=== PATIENT | male | born 1965 | race Caucasian/White ===

== ENCOUNTER → 2017-12-20 | Outpatient (CLI) | payer OTHER ==
[~2017-12-20] MED LIST: AUG875 PO; CEP250 PO; DES5 PO; FEXO180T74 PO; FISHOIL PO; HYDR-385 PO; INDO25 PO; KET10 PO; NIAC100040 PO; OLM20 PO; OLME1TAB51 PO; [UNRECOGNIZED DRUG - CODE] PO
--- NOTE | 2017-12-20 14:37 | RADIOLOGY IMAGING REPORT ---
[place]AC[place] [facility] [place]IENT NAME: Dominic Rivera : 1965 MR: [id number] V: [id number] EXAM DATE: ORDERING PHYSICIAN: COOKIE LAURA TECHNOLOGIST: Location: [facility] - [place] Patient: Dominic Rivera : 1965 Visit/Account:[id number] Date of Sevice: 12/20/2017 THYROID HISTORY: Thyroid nodule, increased pressure on one type COMPARISON: September 14, 2014 FINDINGS: SIZE: Enlarged Right lobe: Approximately 9.7 x 2.4 x 2 cm Left lobe: Approximately 9.4 x 3.8 x 3.6 cm Isthmus: 6 mm PARENCHYMA: Homogeneous. NODULES: Right lobe: * There is a mildly complex cystic and solid nodule in the superior pole the right lobe measuring 1. 3 x 0.9 x 1.3 cm.. This was not identified on the previous scan In the mid right lobe there is a 7 mm well-circumscribed nodule of mixed echogenicity. Left lobe: * Replacing most of the left lobe is a heterogeneous polylobular complex nodule measuring 5.8 x 3.1 x 3.4 cm.. This mass has increased in size when compared to the previous scan In the superior pole of the left lobe is a well-circumscribed isoechoic nodule measuring 2.2 x 1.6 x 2 cm. Isthmus: * None discrete. VASCULARITY: Within normal limits. ADDITIONAL FINDINGS: None. IMPRESSION: There is a mildly complex cystic and solid nodule superior pole of the right lobe measuring 1.3 cm in diameter which was not identified on the prior study The large polylobular mass encompassing most of the left lobe has increased in size and now measures 5.8 x 3.1 x 3.4 cm as opposed to 3.8 cm in maximum dimension on the prior study. REFERENCE: 2015 [place] [employer] Management Guidelines for Adult Patients with Thyroid Nodules and D ifferentiated Thyroid Cancer: The [place] [employer] Guidelines Task Force on Thyroid Nodul es and Differentiated Thyroid Cancer. SONOGRAPHIC PATTERNS: * Benign: Purely cystic nodules (no solid component); estimated risk of malignancy <1 percent; no bi opsy recommended. * Very Low Suspicion: Spongiform or partially cystic nodules without any of the sonographic features described in low, intermediate, or high suspicion patterns; estimated risk of malignancy <3 percent; consider FNA at > 2 cm (Observation without FNA is also a reasonable option). * Low Suspicion: Isoechoic or hyperechoic solid nodule, or partially cystic nodule with eccentric so lid areas, without microcalcification, irregular margin or ETE (extra-thyroidal extension), or taller than wide shape; estimated risk of malignancy 5-10 percent; recommend FNA at >1.5 cm. * Intermediate Suspicion: Hypoechoic solid nodule with smooth margins without microcalcifications, E TE (extra-thyroidal extension), or taller than wide shape; estimated risk of malignancy 10-20 percent ; recommend FNA at > 1 cm. * High Suspicion: Solid hypoechoic nodule or solid hypoechoic component of a partially cystic nodule with one or more of the following features: irregular margins (infiltrative, microlobulated), microc alcifications, taller than wide shape, rim calcifications with small extrusive soft tissue component, evidence of ETE (extra-thyroidal extension); estimated risk of malignancy >70-90 percent; recommend FNA at > 1 cm. NOTES: * Although a sonographically suspicious subcentimeter thyroid nodule without evidence of extrathyroi titus extension or sonographically suspicious lymph nodes may be observed with close sonographic follow -up rather than pursuing immediate FNA, patient age and preference may modify decision-making. A > 50% interval increase in nodule volume and/or development of new suspicious sonographic features are felt to be a valid reasons for potential re-aspiration of a nodule previously shown to have benig n FNA cytology. Report Dictated By: Lydia Maradiaga MD at 12/20/2017 2:15 PM Report E-Signed By: Lydia Maradiaga MD at 12/20/2017 2:32 PM WSN:[email or web address]
== END ==
LOC: US 03:46
PROVIDERS: ATTEND Family Medicine
DX: E04.2 Nontoxic multinodular goiter (principal)
CPT/HCPCS: 76536

== ENCOUNTER 2018-02-03 01:01 | Observation (INO) | payer OTHER ==
[2018-02-03] VITALS (15 sets, daily range): BP systolic 108–137; BP diastolic 76–92
[~2018-02-03] VITALS: Ht 180.3 cm; Wt 102.1 kg
[~2018-02-03 01:01] MED LIST changes: +CHOL10005 PO; +IBUP200C74 PO; +OMEG-11 PO
[2018-02-03] MEDS ORDERED: PROPOFOL EMUL(*) 10MG/ML 20 ML 20 ML ONE (09:37)
[2018-02-03] MEDS ORDERED: SUGAMMADEX SOD 200 MG/2 ML SDV ONE (09:37)
[2018-02-03] MEDS ORDERED: ROCURONIUM BROM 10 MG/ML 10 ML ONE (09:37)
[2018-02-03] MEDS ORDERED: LIDOCAINE MPF 1% 5 ML VIAL ONE (09:37)
[2018-02-03] MEDS ORDERED: ONDANSETRON 4 MG/2 ML VIAL ONE (09:37)
[2018-02-03] MEDS ORDERED: fentaNYL CITR 250 MCG/5 ML AMP ONE (09:37)
[2018-02-03] MEDS ORDERED: DEXAMETHASONE SOD 4 MG/ML VIAL ONE (09:37)
[2018-02-03] MEDS ORDERED: KETAMINE HCL 200 MG/20 ML MDV ONE (09:49)
[2018-02-03] MEDS ORDERED: ROPIVACAINE 0.5% 20 ML VIAL ONE (10:16)
[2018-02-03] MEDS ORDERED: MIDAZOLAM 2 MG/2 ML VIAL IVP PRN (10:30)
[2018-02-03] MEDS ORDERED: ceFAZolin(*) 2GM/D5W 50ML 50 ML IVPB ONE (10:30)
[2018-02-03] MEDS ORDERED: LIDOCAINE/SOD BICARB 8.4% SYR ID ONE (10:30)
[2018-02-03] MEDS ORDERED: FAMOTIDINE 20 MG TAB PO ONE (10:30)
[2018-02-03] MEDS ORDERED: NORMOSOL R SOLN(*) 1000 ML BAG 1,000 ML IV PRN (10:30)
[2018-02-03] MEDS ORDERED: ceFAZolin(*) 1 GM VIAL 3 GM in NS(*) 0.9% 100 ML BAG 100 ML IVPB ONE (10:30)
[2018-02-03] MEDS ORDERED: fentaNYL CITR 100 MCG/2 ML AMP ONE ×2 (12:00→16:18)
[2018-02-03] MEDS ORDERED: DESFLURANE 240 ML BTL INH ONE (12:59)
[2018-02-03] MEDS ORDERED: GELATIN SPONGE 12-7MM ONE ×2 (13:02→13:03)
[2018-02-03] MEDS ORDERED: NS(*) 0.9% 1000 ML BAG 1,000 ML IV PRN (16:02)
[2018-02-03] MEDS ORDERED: FLUSH 10 ML SYR IVP PRN (16:05)
[2018-02-03] MEDS ORDERED: PROMETHAZINE 25 MG/ML 1 ML AMP IVP PRN (16:05)
[2018-02-03] MEDS ORDERED: ONDANSETRON 4 MG/2 ML VIAL IVP PRN (16:05)
[2018-02-03] MEDS ORDERED: MORPHINE 2 MG/ML SYR IVP PRN (16:05)
--- NOTE | 2018-02-03 16:19 | Post Operative Progress Note ---
Post Operative Progress Note Date: Feb 03, 2018 Time: 16:08 Surgeon: Jani Dictation number: [id number] Anesthesia: GETA by Dr. Hill Pre-Op Diagnosis: Multinodular goiter with growing nodules Post-Op Diagnosis: PIERRE Findings: C/W dx Procedure(s): Total thyroidectomy Specimen Removed:(May be N/A): Thyroid Complications: None Fluids: See anesthesia record Estimated Blood Loss: 100mL Date OP Note Dictated: Feb 03, 2018 Time OP Note Dictated: 16:09 ANUSHKA CULP MD Feb 03, 2018 16:19
[2018-02-03] MEDS: CALCIUM CARBONATE 600 MG TAB PO SCH (17:10)
--- NOTE | 2018-02-03 19:38 | OPERATIVE REPORT 1 ---
EVENT DATE: February 03, 2018 SURGEON: Marcos Gunter MD ANESTHESIOLOGIST: Antony Martinez MD ANESTHESIA: General endotracheal anesthesia. PREOPERATIVE DIAGNOSIS Multinodular goiter with growing nodules. POSTOPERATIVE DIAGNOSIS Multinodular goiter with growing nodules. PROCEDURE PERFORMED Total thyroidectomy. COMPLICATIONS None. CONDITION Stable. BLOOD LOSS 100 mL SPECIMENS Thyroid. FINDINGS The patient had a very large left thyroid gland. The right thyroid was almost normal, but there was a just under 2 cm nodule in the superior pole that was very hard. INDICATIONS This is a 53-year-old gentleman who was referred to my office with multiple thyroid nodules. He has had a right thyroid nodule which was not evident on a recent ultrasound, but he had a new very suspicious thyroid nodule in the superior pole of his right thyroid lobe. He also had a 5.8 cm growing polylobular complex nodule encompassing most of his left thyroid lobe. We discussed options, and we discussed sending him for FNA versus proceeding with total thyroidectomy. He elected to proceed with total thyroidectomy given the ultrasound results. DESCRIPTION OF PROCEDURE The patient was brought to the operating room and placed supine on the operating table. General endotracheal anesthesia was administered, and I observed the patient being intubated using the GlideScope, and his vocal cords seemed to be symmetric. We then placed him in a reclining beach chair position with his neck extended and then put in the leads for the nerve monitor in the skin in his chest. We then prepped and draped his neck in a sterile fashion. Timeout was completed. I marked the skin at a skin crease just above his suprasternal notch, then anesthetized the skin, and made a 6 cm Ashley-type incision just in the skin crease centered on the midline. I dissected through the dermis and the subcutaneous fat and then through the platysma muscle. I then grasped the platysma muscle with Allis clamps and created subplatysmal flaps up to the laryngeal cartilage and down to the suprasternal notch and the clavicular heads. I then divided the median raphe between the vertical strap muscles, cut under these, and started with the right thyroid lobe. I raised the muscles off the thyroid lobe and dissected around the lateral aspect of the thyroid. I identified the inferior pole vessels which were isolated and divided with the Harmonic scalpel, and then the middle thyroidal vein was identified and divided with the Harmonic scalpel. The superior pole was very long and went very far up into the neck, and I could palpate a nodule at the very tip of this. I used a combination of blunt and sharp dissection to get around the superior pole and identified the superior vascular pedicle which was isolated and divided with the Harmonic scalpel. I did identify a right inferior parathyroid gland which was clearly identified, and this was preserved along with its blood supply and left in situ. I did not identify the right superior parathyroid gland. I continued to medialize the thyroid and use the nerve identifier to continue to identify the recurrent laryngeal nerve as I continued to dissect. I dissected through the ligament of Neal and then completed the mobilization of the right thyroid lobe through the isthmus. I then moved to the other side of the table and began the dissection of the left thyroid lobe by dissecting under the strap muscles mostly with blunt dissection all the way until I got lateral The left thyroid lobe was much larger than the right thyroid lobe. I continued the dissection in much the same manner as I did on the right side, although it was a little more challenging due to the size of the lobe and the amount of retraction required to get safely around this. I again used the nerve monitor to identify the recurrent laryngeal nerve as I continued the dissection, and I identified the superior and inferior parathyroid glands on the patient's left. These were left in situ. I also observed the branch of the inferior thyroidal artery going into each of these, indicating a good blood supply. The thyroid was then passed off the field, and the patient's neck was irrigated and dried. I looked for bleeding, and it was dry. I did pack Surgicel strips on both sides of the trachea just to hopefully minimize postoperative bleeding and then placed a 10-Macedonian round drain into the patient's neck, coming out through the midline below the sternal notch. I sewed this into place with a single 2-0 silk suture. I then closed the median raphe with interrupted 3-0 Vicryl sutures without sewing the drain in place internally. I then closed the platysma muscle with interrupted 3-0 Vicryl sutures, and the skin was closed with a running 4-0 Monocryl subcuticular suture. The skin was cleaned and dried, and Steri-Strips were applied over the incision, followed by drain dressings. The patient was then awakened and extubated, and I had Dr. Martinez put the GlideScope in so that I could look at the vocal cords, but we were not able to get a good view of them as the patient was squirming. He was then transported to the recovery room in stable condition having tolerated this procedure without any apparent problems. MARSHA
[2018-02-03] MEDS: DOCUSATE SODIUM 100 MG CAP PO SCH (20:18)
[2018-02-03] MEDS: FAMOTIDINE 20 MG TAB PO SCH (20:18)
[2018-02-04 03:31] VITALS: BP 121/82
[2018-02-04 06:20] LABS: PLATELET COUNT, AUTOMATED 204 K/uL (150-450)
[2018-02-04 07:32] VITALS: BP 107/82
[2018-02-04] MEDS: FAMOTIDINE 20 MG TAB PO SCH (08:38)
[2018-02-04] MEDS: DOCUSATE SODIUM 100 MG CAP PO SCH (08:39)
[2018-02-04] MEDS: CALCIUM CARBONATE 600 MG TAB PO SCH (08:39)
[2018-02-04] MEDS ORDERED: OLMESARTAN 20 MG TAB PO SCH (09:00)
[2018-02-04] MEDS ORDERED: OMEGA-3 500 MG CAP PO SCH (09:00)
[2018-02-04] MEDS ORDERED: CHOLECALCIFEROL 1000 UNIT TAB PO SCH (09:00)
[2018-02-04] MEDS ORDERED: PER PO (09:06)
[2018-02-04] MEDS ORDERED: DOCU-202 PO (09:06)
[2018-02-04] MEDS ORDERED: CAL600 PO (09:06)
--- NOTE | 2018-02-04 09:10 | Short(Outpt) Discharge Summary ---
Discharge Summary Reason for Hosp/Final Diag: (1) Multinodular goiter (nontoxic) Status: Chronic Hospital Course & Plan: Total thyroidectomy completed without problems. Pt recovered without problems overnight, drain removed this morning. Will d/c to home. Departure Discharge to: Home, Self Care Discharge Instructions Home Meds Active Scripts Oxycodone/Acetaminophen (OXYCODONE/ACETAMINOPHEN 5MG/325 MG) 5 Mg/325 Mg Tab, 1- 2 TAB PO Q4H Y for MODERATE PAIN, #30 TAB 0 Refills Prov:ANUSHKA CULP MD 02/04/18 Docusate Sodium (DOCUSATE SODIUM) 100 Mg Capsule, 1 CAP PO BID, #30 CAPSULE 0 Refills Prov:ANUSHKA CULP MD 02/04/18 Calcium Carbonate (ELEMENTAL CALCIUM) 600 Mg Tab, 1 TAB PO BIDBS, #60 TAB 0 Refills Prov:ANUSHKA CULP MD 02/04/18 Reported Medications Ibuprofen (ADVIL) 200 Mg Capsule, 1-2 CAP PO Q6-8H Y for PAIN, CAPSULE 01/25/18 Cholecalciferol (Vitamin D3) (VITAMIN D3) 1,000 Unit Tablet, 1000 UNIT PO QDAY, TAB 01/25/18 [place]-3 Fatty Acids/Fish Oil (FISH OIL 1,000 MG CAPSULE) 1 Each Capsule, 1 EACH PO QDAY, CAPSULE 01/25/18 Olmesartan (Benicar) 20 Mg Tab, 40 MG PO QDAY, 0 Refills 01/14/10 Follow up Referrals: General Surgery - 02/21/18 @ Surgery, General with Anushka Culp Md You have a follow up appointment scheduled with Dr. Culp on 02/21/18, at 11:45am. Diet: Regular Activity: No Heavy Lifting, No Exertion Special Instructions: You may remove the dressing on 02/05/18, then you can shower. After showering, leave the incision and drain site open to air but leave the steristrips in place until they fall off on their own. Do not immerse the incisions for 2 weeks. Avoid any activities that involve straining or lifting more than 10 pounds for 1 week after surgery. ANUSHKA CULP MD Feb 04, 2018 09:10
[2018-02-04 10:27] VITALS: Ht 180.3 cm; Wt 102.1 kg
[2018-02-08] MEDS ORDERED: LEVO175T42 PO (16:27)
== END 2018-02-04 09:05 | disposition home or self-care (01) ==
LOC: OR 01:01 → MED 16:55
PROVIDERS: ADMIT Surgery; ATTEND Surgery
DX: E04.2 Nontoxic multinodular goiter (principal); I10 Essential (primary) hypertension; G47.33 Obstructive sleep apnea (adult) (pediatric); Z99.81 Dependence on supplemental oxygen; K21.9 Gastro-esophageal reflux disease without esophagitis; E78.5 Hyperlipidemia, unspecified
CPT/HCPCS: 36415; 60240; 84443; 85025; 88307; G0378; J1100; J2001; J2250; J2405; J2704; J2795; J3010; J3490; J7030; 82310; 82374; 82435; 82565; 82947; 84132; 84295; 84520

== ENCOUNTER → 2018-10-28 | Outpatient (CLI) | payer OTHER ==
[2018-02-04 10:27] VITALS: BMI 31.4
[~2018-10-28] MED LIST changes: +BARIUM SULFATE 148 GM POWDER ONE; +CAL600 PO; +DOCU-202 PO; +LEV125 PO; +LEVO-3 PO; +LEVO175T42 PO; +PER PO
--- NOTE | 2018-10-28 10:41 | SLP MODIFIED BARIUM SWALLOW ---
Speech Language Pathology Modified Barium Swallow Evaluation Report Date of Evaluation:10-28-18 Patient Name: Dominic Rivera Patient : 1965, 53yr Physician: Dr. Marcos Gunter Clinician: Peggy Hicks M.S., CCC-[employer] SYSTEMS ENGINEER BACKGROUND The patient is a 53yr old male referred for an MBS to assess swallow structure and function as indicated by s/s of pharyngeal dysphagia including globus sensation. Pt reported no difficulty swallowing any texture of food or liquid. No coughing during or after swallowing. Oxygen Supplementation: No Level of Consciousness: Non altered Cognitive/Linguistic: intact Orientation: x4 Language: -expressive: nonaphasic -receptive: nonaphasic Speech: -non-apraxic -non-dysarthric Voice -Dysphonia: none -Nasal emission: No -Hypernasality: No -Wet Vocal Quality: No Non-verbal Oral Structure and Function: within functional limits for speech and swallow Pain with Swallow: Denies MODIFIED BARIUM SWALLOW In conjunction with radiology, lateral view with trials of the following consistencies: thin barium liquid (noncarbonated), barium marked pureed, mechanical soft, and regular food consistencies, and a 1cm barium pill. ORAL STAGE Thin Liquids: no evidence of dysphagia; WNL Pureed Foods: no evidence of dysphagia; WNL Mechanical Soft Foods: no evidence of dysphagia; WNL Regular Foods: no evidence of dysphagia; WNL PHARYNGEAL STAGE Thin Liquid: no evidence of dysphagia; WNL Pureed Food: no evidence of dysphagia; WNL Mechanical Soft Foods: no evidence of dysphagia; WNL Regular Food Consistency: no evidence of dysphagia; WNL Penetration/Aspiration Scale*: Thin liquid: Score of 1= Contrast does not enter airway Puree, soft, and regular solids: Score of 1= Contrast does not enter airway *(Rosenbek et al. 1996) ESOPHAGEAL STAGE Peristaltic movement appears to be WNL Cervical Esophagus: Materials witnessed clearing from cervical esophagus WNL. Thoracic Esophagus: Materials witnessed clearing from upper/mid/lower thoracic esophagus WNL. SHAMA: Non witnessed. * Laryngopharyngeal Reflux (LPR) None witnessed. BARIUM PILL: 1cm barium pill taken with thin liquids. No oral, pharyngeal, or esophageal dysphagia witnessed. SUMMARY Aspiration Risk: Low. No oral or pharyngeal stage dysphagia witnessed. No laryngeal penetration or aspiration witnessed. Pt. reported experiencing no symptoms of dysphagia during evaluation. 1.Dysphagia Severity Rating Scale (Gramigna, 2006; Chelle et. al., 1990): 0 Normal swallow mechanism 2.No modification in consistency of diet is indicated. RECOMMENDATIONS 1. Further evaluation of s/s as directed by physician 2. Speech Therapy: Not recommended at this time. Thank you for this referral. Please call [phone] to contact the POWER[employer] SYSTEMS ENGINEER. Peggy Hicks M.S., [facility]-[employer] ENGINEER Physician Signature Date MTDD
--- NOTE | 2018-10-28 10:46 | RADIOLOGY IMAGING REPORT ---
FACILITY: [facility] - [place] PATIENT NAME: Dominic Rivera : 1965 MR: [id number] V: [id number] EXAM DATE: [id number] ORDERING PHYSICIAN: ANUSHKA CULP TECHNOLOGIST: [place] [facility] [place]: Dominic Rivera : 1965 Visit/Account:[id number] Date of Sevice: 10/28/2018 Exam type: ESOPH VIDEO SWALLOWING History: odynophagia s/p total thyroidectomy, dysphagia Comparison: None. Findings: Modified barium swallow was performed by speech pathologist. Fluoroscopic assistance was provided Th e patient received various food substances and barium tablet and thin barium. There is no evidence o f dysphasia during the study. Please see the speech pathologist report for complete details. The do se area product was 516.08 micro-Capellan per meter squared IMPRESSION: 1. As above Report Dictated By: Lydia Maradiaga MD at 10/28/2018 10:40 AM Report E-Signed By: Lydia Maradiaga MD at 10/28/2018 10:42 AM WSN:[email or web address]
== END ==
LOC: CT 02:13
PROVIDERS: ATTEND Surgery
DX: R13.10 Dysphagia, unspecified (principal); Z78.9 Other specified health status
CPT/HCPCS: 74230

== ENCOUNTER → 2018-11-10 | Outpatient (CLI) | payer OTHER ==
[2018-02-04 10:27] VITALS: BMI 31.4
[~2018-11-10] MED LIST changes: -BARIUM SULFATE 148 GM POWDER ONE
== END ==
LOC: LAB 08:21
PROVIDERS: ATTEND Surgery
DX: I10 Essential (primary) hypertension (principal)
CPT/HCPCS: 36415; 82565

== ENCOUNTER → 2018-11-11 | Outpatient (CLI) | payer OTHER ==
[2018-02-04 10:27] VITALS: BMI 31.4
[~2018-11-11] MED LIST changes: +IOPAMIDOL 76% 150 ML INFUS BTL 150 ML ONE
--- NOTE | 2018-11-11 12:08 | RADIOLOGY IMAGING REPORT ---
FACILITY: [facility] PATIENT NAME: Dominic Rivera : 1965 MR: [id number] V: [id number] EXAM DATE: [id number] ORDERING PHYSICIAN: ANUSHKA CULP TECHNOLOGIST: Location: [facility] Patient: Dominic Rivera : 1965 Visit/Account:[id number] Date of Sevice: 11/11/2018 EXAMINATION: CT neck with IV contrast HISTORY: Odynophagia. Previous thyroidectomy. COMPARISON: Thyroid ultrasound from 09/14/2014 and I-123 scan from 10/08/2015. TECHNIQUE: Spiral scan was obtained from the hard palate through the upper chest during injection o f nonionic iodinated intravenous contrast. Sagittal and coronal reformatted images are also submitte d. CONTRAST: 75 mL of IV Isovue-370. One of the following dose optimization techniques was utilized in the performance of this exam: Autom ated exposure control; adjustment of the mA and/or kV according to the patient's size; or use of an i terative reconstruction technique. Specific details can be referenced in the facility's radiology C T exam operational policy. FINDINGS: Masses/lesions: Previous thyroidectomy. 1.4 x 1.1 cm soft tissue nodule at the inferior aspect of th e left thyroid bed (image 61 series 2), with probable fatty hilum. Airway: Normal. Vessels: Negative. Musculoskeletal/body wall: Mild degenerative changes of the cervical spine. No focal lytic or sclerot ic bony lesions. Lymph nodes: There are a few scattered shotty lymph nodes in the neck, without enlarged or abnormal m orphology lymph nodes. Visualized orbits/brain/paranasal sinuses: Negative. Upper chest: Negative. IMPRESSION: 1. No explanation for the patient's symptoms. 2. Previous thyroidectomy. 1.4 x 1.1 cm soft tissue nodule in the left thyroid bed is likely a shotty lymph node. Report Dictated By: Daksha Jackson MD at 11/11/2018 12:00 PM Report E-Signed By: Daksha Jackson MD at 11/11/2018 12:05 PM WSN:[email or web address]
== END ==
LOC: CT 02:04
PROVIDERS: ATTEND Surgery
DX: R13.10 Dysphagia, unspecified (principal); Z90.89 Acquired absence of other organs
CPT/HCPCS: 70491; Q9967

== ENCOUNTER → 2019-02-28 | Outpatient (CLI) | payer OTHER ==
[2018-02-04 10:27] VITALS: BMI 31.4
[~2019-02-28] MED LIST changes: -IOPAMIDOL 76% 150 ML INFUS BTL 150 ML ONE; +LEV112 PO; +PANT40TA65 PO
== END ==
LOC: LAB 08:30
PROVIDERS: ATTEND Surgery
DX: E04.2 Nontoxic multinodular goiter (principal); F45.8 Other somatoform disorders
CPT/HCPCS: 36415; 84443